=== PATIENT | male | born 1995 | race Caucasian/White ===

== ENCOUNTER 2018-12-02 19:36 | Emergency (ER) | payer SELFPAY ==
--- NOTE | 2018-12-02 20:16 | ER Document Report ---
ED Medical Screen (RME) - General Chief Complaint: Drug Abuse Stated Complaint: POSSIBLE DETOX Time Seen by Provider: 12/02/18 20:13 Primary Care Provider: FORTINO AYON PA-C [Primary Care Provider] - Follow up as needed Mode of Arrival: Ambulatory Information source: Patient Notes: 23-year-old male presented to ED for complaint of "withdrawal from meth ". He states he took meth last 2 days ago and he took some hydrocodone yesterday. He states he has no medical history has had his appendix removed smokes 1/2 pack a day drinks weekly and is addicted to meth. Patient is alert oriented, answering questions appropriately, and states he is able to eat and drink without difficulty. I have greeted and performed a rapid initial assessment of this patient. A comprehensive ED assessment and evaluation of the patient, analysis of test results and completion of medical decision making process will be conducted by an additional ED providers. Dictation of this chart was performed using voice recognition software; therefore, there may be some unintended grammatical errors. TRAVEL OUTSIDE OF THE [place] IN LAST 30 DAYS: No - Related Data Allergies/Adverse Reactions: No Known Allergies Allergy (Unverified 02/05/15 09:53) Past Medical History Past Surgical History: Reports: Hx Appendectomy - Immunizations Immunizations up to date: Yes Physical Exam - Vital signs Vitals: Temp Pulse Resp BP Pulse Ox 98 F 74 14 115/68 97 12/02/18 19:46 12/02/18 19:46 12/02/18 19:46 12/02/18 19:46 12/02/18 19:46 Course - Vital Signs Vital signs: Temp Pulse Resp BP Pulse Ox 98 F 74 14 115/68 97 12/02/18 19:46 12/02/18 19:46 12/02/18 19:46 12/02/18 19:46 12/02/18 19:46 Doctor's Discharge - Discharge Referrals: FORTINO AYON PA-C [Primary Care Provider] - Follow up as needed
[2018-12-02 20:39] LABS: ABSOLUTE EOSINOPHILS # (AUTO) 0.1 10^3/uL (0.0-0.6); ABSOLUTE LYMPHOCYTES (AUTO) 1.9 10^3/uL (0.5-4.7); ABSOLUTE MONOCYTES (AUTO) 0.6 10^3/uL (0.1-1.4); ABSOLUTE NEUT (AUTO) 3.9 10^3/uL (1.7-8.2); BASOPHILS % (AUTO) 0.6 % (0-2); EOSINOPHILS % (AUTO) 1.9 % (0-6); HEMATOCRIT 42.9 % (37.9-51.0); HEMOGLOBIN 15.4 g/dL (13.5-17.0); LYMPHOCYTES % (AUTO) 28.8 % (13-45); MEAN CORPUSCULAR HEMOGLOBIN 32.6 pg (27.0-33.4); MEAN CORPUSCULAR HGB CONC 35.9 g/dL (32.0-36.0); MEAN CORPUSCULAR VOLUME 91 fl (80-97); MONOCYTES % (AUTO) 8.7 % (3-13); PLATELET COUNT 186 10^3/uL (150-450); RED BLOOD COUNT 4.73 10^6/uL (4.35-5.55); RED CELL DISTRIBUTION WIDTH 12.5 % (11.5-14.0); TOTAL CELLS COUNTED % (AUTO) 100 %; WHITE BLOOD COUNT 6.6 10^3/uL (4.0-10.5)
[2018-12-02 20:44] LABS: APPEARANCE,URINE CLEAR; BILIRUBIN,URINE NEGATIVE (NEGATIVE); COLOR,URINE YELLOW; GLUCOSE, URINE NEGATIVE (NEGATIVE); KETONES,URINE NEGATIVE (NEGATIVE); LEUKOCYTE ESTERASE,URINE NEGATIVE (NEGATIVE); NITRITE,URINE NEGATIVE (NEGATIVE); PROTEIN,URINE NEGATIVE (NEGATIVE); URINE SPECIFIC GRAVITY 1.013; UROBILINOGEN,URINE NEGATIVE mg/dL (<2.0)
[2018-12-02 20:54] LABS: ALANINE AMINOTRANSFERASE 33 U/L (21-72); ALKALINE PHOSPHATASE 89 U/L (38-126); ANION GAP 6 (5-19); ASPARTATE AMINO TRANSFERASE 24 U/L (17-59); BILIRUBIN,DIRECT 0.2 mg/dL (0.0-0.4); BILIRUBIN,TOTAL 0.5 mg/dL (0.2-1.3); BLOOD UREA NITROGEN 14 mg/dL (7-20); CALCIUM 9.8 mg/dL (8.4-10.2); CARBON DIOXIDE 31 mmol/L (22-30); CHLORIDE 102 mmol/L (98-107); GLUCOSE 80 mg/dL (75-110); POTASSIUM 3.9 mmol/L (3.6-5.0); SODIUM 138.8 mmol/L (137-145); TOTAL PROTEIN 6.4 g/dL (6.3-8.2)
[2018-12-02 20:57] LABS: URINE BARBITURATES SCREEN NEGATIVE; URINE BENZODIAZEPINES SCREEN NEGATIVE; URINE COCAINE SCREEN NEGATIVE; URINE MARIJUANA (THC) SCREEN NEGATIVE; URINE METHADONE SCREEN NEGATIVE; URINE PHENCYCLIDINE SCREEN NEGATIVE
[2018-12-02 21:13] LABS: CREATINE KINASE MB 2.96 ng/mL (<4.55)
[2018-12-02 21:23] LABS: TROPONIN I < 0.012 ng/mL
--- NOTE | 2018-12-02 23:24 | ER Document Report ---
ED General - General Chief Complaint: Drug Abuse Stated Complaint: POSSIBLE DETOX Time Seen by Provider: 12/02/18 20:13 Primary Care Provider: FORTINO AYON PA-C [NO LOCAL MD] - Follow up as needed Mode of Arrival: Ambulatory Notes: Patient is a 23-year-old male with history of methamphetamine abuse that presents to the emergency department for chief complaint of wanting detox. Patient states his been using methamphetamines for some time, his grandmother does state that he come to the point he needs rehab with a given that he will , they are told to come to the emergency department to be set up with rehab. He at this time states his been tired, thirsty, but denies having any nausea, vomiting, chest pain, palpitations, shortness of breath or difficulty breathing. His last use of methamphetamines was 2 days ago. Past Medical History: Methamphetamine abuse Past Surgical History: Appendectomy Social History: Admits to smoking cigarettes, occasional alcohol use, and meth use Family History: Reviewed and noncontributory for presenting illness Allergies: Reviewed, see documented allergy list. REVIEW OF SYSTEMS: Other than noted above, the 12 point review of systems was reviewed with the patient and were negative, all pertinent findings are included in the HPI. PHYSICAL EXAMINATION: Vital signs reviewed, nursing noted reviewed. GENERAL: Well-appearing, well-nourished and in no acute distress. HEAD: Atraumatic, normocephalic. EYES: Eyes appear normal, extraocular movements intact, sclera anicteric, conjunctiva are normal. ENT: nares patent, oropharynx clear without exudates. Moist mucous membranes. NECK: Normal range of motion, supple without lymphadenopathy LUNGS: Breath sounds clear to auscultation bilaterally and equal. No wheezes rales or rhonchi. HEART: Regular rate and rhythm without murmurs ABDOMEN: Soft, nontender, normoactive bowel sounds. No rebound, guarding, or rigidity. No masses appreciated. EXTREMITIES: Nontender, good range of motion, no pitting or edema. NEUROLOGICAL: No focal neurological deficits. Moves all extremities spontaneously Motor and sensory grossly intact on exam. PSYCH: Poor eye contact, not engaging in history. SKIN: Warm, Dry, normal turgor, skin popping bhakta noted on the patient extremities TRAVEL OUTSIDE OF THE [place] IN LAST 30 DAYS: No - Related Data Allergies/Adverse Reactions: No Known Allergies Allergy (Unverified 02/05/15 09:53) Past Medical History - General Information source: Patient - Social History Smoking Status: Current Every Day Smoker Frequency of alcohol use: Occasional Drug Abuse: Methamphetamine Family History: Reviewed & Not Pertinent Patient has suicidal ideation: No Patient has homicidal ideation: No Renal/ Medical History: Denies: Hx Peritoneal Dialysis Past Surgical History: Reports: Hx Appendectomy - Immunizations Immunizations up to date: Yes Physical Exam - Vital signs Vitals: Temp Pulse Resp BP Pulse Ox 98 F 74 14 115/68 97 12/02/18 19:46 12/02/18 19:46 12/02/18 19:46 12/02/18 19:46 12/02/18 19:46 Course - Re-evaluation Re-evalutation: Patient seen and examined, vital signs reviewed. Medical screening testing was ordered including bloodwork, EKG, and toxicology. Results of testing were reviewed. Testing demonstrated essentially unremarkable blood work, tox positive for methamphetamines. Patient has been stable from a hemodynamic standpoint. At this point I feel that the patient is medically cleared and can be discharged to follow-up with detox facility, discussed with the patient's grandmother, that we typically facilitate detox facilities, but outpatient resources can be provided, she states that she is desperate and is concerned about her grandson, and is needing assistance with this, however that the patient stay overnight in the hospital in the emergency department, and it was social service consult to help with this. They are agreeable to this. I did discuss with her that if he wanted to leave on his own accord prior to being evaluated, that he could, as he was not suicidal or homicidal at this time or not demonstrating any acute psychosis. Patient updated on plan of care. Laboratory 12/02/18 12/02/18 12/02/18 20:15 20:15 20:20 WBC 6.6 RBC 4.73 Hgb 15.4 Hct 42.9 MCV 91 MCH 32.6 MCHC 35.9 RDW 12.5 Plt Count 186 Seg Neutrophils % 60.0 Lymphocytes % 28.8 Monocytes % 8.7 Eosinophils % 1.9 Basophils % 0.6 Absolute Neutrophils 3.9 Absolute Lymphocytes 1.9 Absolute Monocytes 0.6 Absolute Eosinophils 0.1 Absolute Basophils 0.0 Sodium Potassium Chloride Carbon Dioxide Anion Gap BUN Creatinine Est GFR ( Amer) Est GFR (Non-Af Amer) Glucose Calcium Total Bilirubin Direct Bilirubin Neonat Total Bilirubin Neonat Direct Bilirubin Neonat Indirect Bili AST ALT Alkaline Phosphatase CK-MB (CK-2) Troponin I Total Protein Albumin Urine Color YELLOW Urine Appearance CLEAR Urine pH 6.0 Ur Specific Saxton 1.013 Urine Protein NEGATIVE Urine Glucose (UA) NEGATIVE Urine Ketones NEGATIVE Urine Blood NEGATIVE Urine Nitrite NEGATIVE Urine Bilirubin NEGATIVE Urine Urobilinogen NEGATIVE Ur Leukocyte Esterase NEGATIVE Urine RBC (Auto) 0 Urine Mucus (Auto) RARE Urine Ascorbic Acid NEGATIVE Urine Opiates Screen NEGATIVE Urine Methadone Screen NEGATIVE Ur Barbiturates Screen NEGATIVE Ur Phencyclidine Scrn NEGATIVE Ur Amphetamines Screen U Benzodiazepines Scrn NEGATIVE Urine Cocaine Screen NEGATIVE U Marijuana (THC) Screen NEGATIVE 12/02/18 12/02/18 20:20 20:20 WBC RBC Hgb Hct MCV MCH MCHC RDW Plt Count Seg Neutrophils % Lymphocytes % Monocytes % Eosinophils % Basophils % Absolute Neutrophils Absolute Lymphocytes Absolute Monocytes Absolute Eosinophils Absolute Basophils Sodium 138.8 Potassium 3.9 Chloride 102 Carbon Dioxide 31 H Anion Gap 6 BUN 14 Creatinine 0.71 Est GFR ( Amer) > 60 Est GFR (Non-Af Amer) > 60 Glucose 80 Calcium 9.8 Total Bilirubin 0.5 Direct Bilirubin 0.2 Neonat Total Bilirubin Not Reportable Neonat Direct Bilirubin Not Reportable Neonat Indirect Bili Not Reportable AST 24 ALT 33 Alkaline Phosphatase 89 CK-MB (CK-2) 2.96 Troponin I < 0.012 Total Protein 6.4 Albumin 4.0 Urine Color Urine Appearance Urine pH Ur Specific Saxton Urine Protein Urine Glucose (UA) Urine Ketones Urine Blood Urine Nitrite Urine Bilirubin Urine Urobilinogen Ur Leukocyte Esterase Urine RBC (Auto) Urine Mucus (Auto) Urine Ascorbic Acid Urine Opiates Screen Urine Methadone Screen Ur Barbiturates Screen Ur Phencyclidine Scrn Ur Amphetamines Screen U Benzodiazepines Scrn Urine Cocaine Screen U Marijuana (THC) Screen - Vital Signs Vital signs: Temp Pulse Resp BP Pulse Ox 98 F 74 14 115/68 97 12/02/18 19:46 12/02/18 19:46 12/02/18 19:46 12/02/18 19:46 12/02/18 19:46 - Laboratory Result Diagrams: 12/02/18 20:20 12/02/18 20:20 Laboratory results interpreted by me: 12/02/18 20:20 Carbon Dioxide 31 H Discharge - Discharge Clinical Impression: Methamphetamine abuse Condition: Stable Disposition: HOME, SELF-CARE Instructions: Ampetamine Abuse ([facility]) Additional Instructions: Please follow-up with detox facilities recommended, do not take any medications that are not prescribed to you and do not use any illegal drugs as these can be fatal and cause significant health problems. Referrals: FORTINO AYON PA-C [NO LOCAL MD] - Follow up as needed
[2018-12-02] MEDS ORDERED: NORMAL SALINE 1000 ML 1,000 ML IV ONE (23:45)
--- NOTE | 2018-12-03 07:41 | EKG REPORT ---
SEVERITY:- BORDERLINE ECG - SINUS RHYTHM BORDERLINE RIGHT AXIS DEVIATION NONSPECIFIC ST-T CHANGES LATERAL LEADS. : Confirmed by: Chacorta Roca MD 03-Dec-2018 07:40:38
[2018-12-03 09:18] VITALS: BP 138/73
== END 2018-12-03 09:21 | disposition home or self-care (01) ==
LOC: ER 19:36
DX: F19.10 Other psychoactive substance abuse, uncomplicated (principal); F17.210 Nicotine dependence, cigarettes, uncomplicated
CPT/HCPCS: 93005; 99284; 96360; 36415; 82553; 85025; 80053; 81001; 84484; 80307; 93010; J7030

== ENCOUNTER 2019-12-29 14:15 | Emergency (ER) | payer OTHER, BC ==
--- NOTE | 2019-12-29 14:34 | ER Document Report ---
ED Medical Screen (RME) - General Chief Complaint: Laceration Stated Complaint: LACERATION Time Seen by Provider: 12/29/19 14:30 Notes: HPI: 24-year-old male who was cutting a panel with a razor blade sustained a laceration above the left knee. States he is up-to-date on his tetanus vaccination. PHYSICAL EXAMINATION: 2.5 cm half-saha shaped laceration on the medial aspect of the left leg just proximal to the knee I have greeted and performed a rapid initial assessment of this patient. A comprehensive ED assessment and evaluation of the patient, analysis of test results and completion of medical decision making process will be conducted by an additional ED providers. TRAVEL OUTSIDE OF THE [place] IN LAST 30 DAYS: No - Related Data Allergies/Adverse Reactions: No Known Allergies Allergy (Unverified 02/05/15 09:53) Past Medical History Renal/ Medical History: Denies: Hx Peritoneal Dialysis Past Surgical History: Reports: Hx Appendectomy - Immunizations Immunizations up to date: Yes Physical Exam - Vital signs Vitals: Temp Pulse Resp BP Pulse Ox 99.1 F 84 18 147/86 H 96 12/29/19 14:29 12/29/19 14:29 12/29/19 14:29 12/29/19 14:29 12/29/19 14:29 Course - Vital Signs Vital signs: Temp Pulse Resp BP Pulse Ox 99.1 F 84 18 147/86 H 96 12/29/19 14:29 12/29/19 14:29 12/29/19 14:29 12/29/19 14:29 12/29/19 14:29
[2019-12-29] MEDS ORDERED: LIDOCAINE 1% INJ-PF (10 MG/ML) 30 ML SDV INJ ONE (16:18)
[2019-12-29] MEDS ORDERED: HYDROCODONE/ACETAMINOPHEN 5-325 MG TABLET PO ONE (16:18)
[2019-12-29] MEDS ORDERED: CEPHALEXIN 500 MG CAPSULE PO ONE (16:18)
[2019-12-29] MEDS ORDERED: LIDOCAINE 1%/EPINEPHRINE INJ 20 ML VIAL INJ ONE (16:18)
--- NOTE | 2019-12-29 16:21 | ER Document Report ---
ED General - General Chief Complaint: Laceration Stated Complaint: LACERATION Time Seen by Provider: 12/29/19 14:30 Notes: Patient is a 24-year-old white male with no significant past medical history who presents to the emergency department with a chief complaint of laceration to the right distal thigh just proximal to the knee that occurred prior to arrival. He was at work using a razor blade tool to cut an object when it accidentally sli pped slicing his thigh. He states he is tried to cleanse the wound with a water and a washrag. His tetanus was updated last year. He denies any decreased range of motion of the extremity or any numbness, tingling or weakness. Denies any uncontrollable bleeding. TRAVEL OUTSIDE OF THE [place] IN LAST 30 DAYS: No - Related Data Allergies/Adverse Reactions: No Known Allergies Allergy (Unverified 02/05/15 09:53) Past Medical History - Social History Smoking Status: Never Smoker Frequency of alcohol use: Social Family History: Reviewed & Not Pertinent Renal/ Medical History: Denies: Hx Peritoneal Dialysis Past Surgical History: Reports: Hx Appendectomy - Immunizations Immunizations up to date: Yes Review of Systems - Review of Systems Skin: Other - Laceration -: Yes All other systems reviewed and negative Physical Exam - Vital signs Vitals: Temp Pulse Resp BP Pulse Ox 99.1 F 84 18 147/86 H 96 12/29/19 14:29 12/29/19 14:29 12/29/19 14:29 12/29/19 14:29 12/29/19 14:29 - General General appearance: Appears well, Alert In distress: None - Respiratory Respiratory status: No respiratory distress Chest status: Nontender Breath sounds: Normal Chest palpation: Normal - Cardiovascular Rhythm: Regular Heart sounds: Normal auscultation - Extremities General upper extremity: Normal inspection, Nontender, Normal color, Normal ROM, Normal temperature General lower extremity: Nontender, Normal color, Normal ROM, Normal temperatu re, Normal weight bearing. No: Argelia's sign Thigh: Other - 2 cm linear laceration to the anterior right thigh distally just proximal to the medial knee. Wound edges approximate well. Full passive range of motion of the affected area. Neurovascular intact distally 2+ DP/PT. Gait slightly limited by pain. No foreign body visualized. Hemostasis maintained. - Neurological Neuro grossly intact: Yes Cognition: Normal Orientation: AAOx4 - Psychological Associated symptoms: Normal affect, Normal mood - Skin Skin Color: Other - Normal except laceration described above Course - Re-evaluation Re-evalutation: 12/29/19 17:21 Patient tolerated wound repair well. Tetanus was updated last year. We placed on Keflex, given first dose here. Will send home with a short course of [place] for pain. Counseled him regarding the importance of outpatient follow-up and advised to return here any ER immediately with any new, persistent or worsening symptoms. He verbalized understood and agreed. Suture recheck in 2 to 3 days. Suture removal in approximately 10 days. - Vital Signs Vital signs: Temp Pulse Resp BP Pulse Ox 99.1 F 84 18 147/86 H 96 12/29/19 14:29 12/29/19 14:29 12/29/19 14:29 12/29/19 14:29 12/29/19 14:29 Procedures - Laceration/Wound Repair Left Distal Thigh Time completed: 17:20 Wound length (cm): 2 Wound's Depth, Shape: Superficial, Linear Laceration pre-procedure: Sterile PPE donned, Betadine prep applied, Sterile drapes applied, Shur-Clens applied Anesthetic type: 1% Lidocaine w/epi Volume Anesthetic (mLs): 8 Wound explored: Clean Irrigated w/ Saline (mLs): 150 Wound Repaired With: Sutures Suture Size/Type: 4:0, Ethilon Number of Sutures: 6 Layer Closure?: No Post-procedure wound care: Sterile dressing applied Post-procedure NV exam normal: Yes Complications: No Discharge - Discharge Clinical Impression: Leg laceration Qualifiers: Encounter type: initial encounter Laterality: left Qualified Code(s): S81.812A - Laceration without foreign body, left lower leg, initial encounter Condition: Stable Disposition: HOME, SELF-CARE Instructions: Laceration Care (OM) Additional Instructions: Please have your wound checked in 2 to 3 days. Your sutures should be removed in approximately 10 days. Please return here or any ER immediately with any new, persistent or worsening symptoms. Prescriptions: Cephalexin Monohydrate [Keflex 500 mg Capsule] 500 mg PO BID 10 Days #19 capsule Hydrocodone/Acetaminophen [[place] 5-325 mg Tablet] 1 tab PO Q6 PRN #12 tablet PRN Reason:
[2019-12-29 17:32] VITALS: BP 130/70
== END 2019-12-29 17:31 | disposition home or self-care (01) ==
LOC: ER 14:15
PROC: 0HQJXZZ Repair Left Upper Leg Skin, External Approach (ICD-10-PCS; principal; 2019-12-29)
DX: S71.111A Laceration without foreign body, right thigh, initial encounter (principal); X58.XXXA Exposure to other specified factors, initial encounter
CPT/HCPCS: 99282; 12001; J3490